=== PATIENT | male | born 1965 | race Two or more races ===

== ENCOUNTER 2020-05-04 14:49 | Emergency (ER) | payer OTHER ==
[~2020-05-04] VITALS: Ht 172.7 cm; Wt 117.9 kg
[2020-05-04 14:50] VITALS: BP 125/94
[2020-05-04] MEDS ORDERED: LIDOCAINE 1% HCL (LOCAL ANESTH.) INJ 20ML MDV IJ ONE (17:45)
== END 2020-05-04 18:00 | disposition home or self-care (01) ==
LOC: ER 14:49
DX: S61.412A Laceration without foreign body of left hand, initial encounter (principal); I10 Essential (primary) hypertension; W22.8XXA Striking against or struck by other objects, initial encounter; Y93.89 Activity, other specified; Y92.89 Other specified places as the place of occurrence of the external cause; Y99.8 Other external cause status
CPT/HCPCS: 12001; 99282; J2001